=== PATIENT | female | born 1995 | race Hispanic/Latino ===

== ENCOUNTER 2020-08-27 15:30 | Emergency (ER) | payer SELFPAY ==
[2020-08-27] MEDS ORDERED: DEXAMETHASONE SOD PHOSPHATE 10MG/ML 1ML VIAL ONE (16:26)
[2020-08-27] MEDS ORDERED: FAMOTIDINE 20MG TAB 20 MG TAB ONE (16:27)
[2020-08-27] MEDS ORDERED: DIPHENHYDRAMINE HCL 25 MG CAPSULE ONE (16:27)
== END 2020-08-27 16:54 | disposition home or self-care (01) ==
LOC: EDH 15:30
DX: L50.0 Allergic urticaria (principal); L03.114 Cellulitis of left upper limb; Z98.890 Other specified postprocedural states
CPT/HCPCS: 96372; 99283; J1100; Q0163

== ENCOUNTER 2020-12-11 20:04 | Emergency (ER) | payer OTHER ==
[~2020-12-11] VITALS: Ht 154.9 cm; Wt 88.0 kg
[2020-12-11] MEDS ORDERED: ONDANSETRON 4MG TABLET PO ONE (21:30)
[2020-12-11] MEDS ORDERED: FAMOTIDINE 20MG TAB PO ONE (21:30)
[2020-12-11] MEDS ORDERED: METOCLOPRAMIDE 10 MG TABLET PO ONE (21:30)
[2020-12-11] MEDS ORDERED: KETOROLAC 60 MG VIAL (30MG/ML) IM ONE (21:30)
[2020-12-11 21:33] LABS: APPEARANCE,URINE Clear (CLEAR); BILIRUBIN,URINE Negative (NEGATIVE); COLOR,URINE Yellow (YELLOW); GLUCOSE, URINE (UA) Negative (NEGATIVE); KETONES,URINE >=80 mg/dL (NEGATIVE); LEUKOCYTE ESTERASE ,URINE Small (NEGATIVE); NITRATE,URINE Negative (NEGATIVE); OCCULT BLOOD,URINE Trace (NEGATIVE); PROTEIN,URINE Negative (NEGATIVE); UROBILINOGEN,URINE 0.2 mg/dL (0.2-1.0)
[2020-12-11 21:35] LABS: HCG,QUAL RESULT NEGATIVE (NEGATIVE)
[2020-12-11 21:42] LABS: RBC,URINE 0-1 /HPF (0-1); WBC,URINE 0-1 /HPF (0-1)
[2020-12-11 21:43] LABS: BASOPHILS % (AUTO) 0.3 % (0.0-5.0); EOSINOPHILS % (AUTO) 0.3 % (0.0-8.0); HEMATOCRIT 39.9 % (36-48); LYMPHOCYTES % (AUTO) 22.9 % (21.0-51.0); MEAN CORPUSCULAR HEMOGLOBIN 27.8 pg (27.0-33.0); MEAN CORPUSCULAR HGB CONC 33.1 g/dL (32.0-36.0); MONOCYTES % (AUTO) 5.6 % (3.0-13.0); NEUTROPHILS % (AUTO) 70.6 % (40.0-77.0); PLATELET COUNT (AUTO) 211 K/uL (130-400); RED BLOOD CELL COUNT(AUTO) 4.75 MIL/uL (4.00-5.50)
[2020-12-11 21:43] LABS: BACTERIA,URINE Few /HPF (None Seen); SQUAMOUS EPITHELIAL CELL,UR Few /HPF (0-2)
[2020-12-11 22:08] LABS: ALBUMIN 3.8 g/dL (3.5-5.0); BILIRUBIN,TOTAL 0.6 mg/dL (0.2-1.0); CREATININE 0.6 mg/dL (0.5-1.5); POTASSIUM 4.3 mmol/L (3.5-5.1); TOTAL PROTEIN, SERUM 7.6 g/dL (6.0-8.3)
[2020-12-11 22:30] VITALS: BP 135/82
[2020-12-11] MEDS ORDERED: DICY20TA2 PO (22:30)
[2020-12-11] MEDS ORDERED: ONDA4TAB10 PO (22:30)
[2020-12-11] MEDS ORDERED: METO-296 PO (22:30)
[2020-12-11] MEDS ORDERED: MELO7.5T12 PO (22:30)
[2020-12-11] MEDS ORDERED: FAMOTIDINE 20MG TAB ONE (22:34)
[2020-12-11] MEDS ORDERED: METOCLOPRAMIDE 10 MG TABLET ONE (22:34)
[2020-12-11] MEDS ORDERED: KETOROLAC 60 MG VIAL (30MG/ML) ONE (22:34)
[2020-12-11] MEDS ORDERED: ONDANSETRON ODT 4MG TAB ONE (22:35)
== END 2020-12-11 22:52 | disposition home or self-care (01) ==
LOC: EDH 20:04
DX: S39.011A Strain of muscle, fascia and tendon of abdomen, initial encounter (principal); R10.13 Epigastric pain; Z79.1 Long term (current) use of non-steroidal anti-inflammatories (NSAID); Z79.899 Other long term (current) drug therapy; X58.XXXA Exposure to other specified factors, initial encounter; Y93.89 Activity, other specified; Y92.89 Other specified places as the place of occurrence of the external cause; Y99.8 Other external cause status
CPT/HCPCS: 36415; 80053; 81001; 81025; 83690; 85025; 96372; 99284; J1885

== ENCOUNTER 2023-01-20 10:27 | Observation (INO) | payer MEDICAID, OTHER ==
[~2023-01-20] VITALS: Ht 154.9 cm; Wt 88.7 kg
[~2023-01-20 10:27] MED LIST: DICY20TA2 PO; MELO7.5T12 PO; METO-296 PO; ONDA4TAB10 PO
[2023-01-20 10:40] VITALS: BP 119/65; PULSE 106; RESP 16; O2SAT 97
[2023-01-20] MEDS ORDERED: LACTATED RINGERS 1000ML 1,000 ML IV PRN (11:00)
[2023-01-20 11:17] LABS: APPEARANCE,URINE CLOUDY (CLEAR); BILIRUBIN,URINE NEGATIVE (NEGATIVE); COLOR,URINE YELLOW (YELLOW); GLUCOSE, URINE (UA) NEGATIVE (NEGATIVE); KETONES,URINE 150 mg/dL (NEGATIVE); LEUKOCYTE ESTERASE ,URINE 250 Leu/uL (NEGATIVE); NITRATE,URINE NEGATIVE (NEGATIVE); OCCULT BLOOD,URINE NEGATIVE (NEGATIVE); PROTEIN,URINE 50 mg/dL (NEGATIVE); UROBILINOGEN,URINE 0.2 mg/dL (0.2-1.0)
[2023-01-20 11:19] LABS: ADD UA MICROSCOPIC YES
[2023-01-20 11:27] LABS: BACTERIA,URINE RARE /HPF (None Seen); MUCUS,URINE RARE LPF (None Seen); SQUAMOUS EPITHELIAL CELL,UR MANY /HPF (0-2)
[2023-01-20 11:54] LABS: AMPHET/METH SCREEN,URINE NEGATIVE (NEGATIVE); BARBITURATE SCREEN, URINE NEGATIVE (NEGATIVE); BENZODIAZEPINES SCREEN,URINE NEGATIVE (NEGATIVE); CANNABINOID SCREEN,URINE NEGATIVE (NEGATIVE); COCAINE SCREEN,URINE NEGATIVE (NEGATIVE); OPIATE SCREEN,URINE NEGATIVE (NEGATIVE); PHENCYCLIDINE SCREEN,URINE NEGATIVE (NEGATIVE)
[2023-01-20] MEDS ORDERED: PROMETHAZINE HCL 25 MG/ML 1ML AMPULE IM ONE (12:00)
[2023-01-20 12:07] LABS: SARS-CoV-2, RNA, NAAT NEGATIVE SARS CoV-2 (NEGATIVE)
[2023-01-20 12:11] LABS: INFLUENZA TYPE A Negative For Type A (NEGATIVE); INFLUENZA TYPE B Negative For Type B (NEGATIVE)
== END 2023-01-20 12:35 | disposition home or self-care (01) ==
LOC: EDH 10:27 → LDH 10:28
PROVIDERS: ADMIT Obstetrics & Gynecology; ATTEND Obstetrics & Gynecology
DX: O21.2 Late vomiting of pregnancy (principal); Z20.822 Contact with and (suspected) exposure to COVID-19; O26.892 Other specified pregnancy related conditions, second trimester; R10.9 Unspecified abdominal pain; R19.7 Diarrhea, unspecified; Z79.899 Other long term (current) drug therapy; Z3A.24 24 weeks gestation of pregnancy
CPT/HCPCS: 96372; 96360; 80305; 87088; 87804 ×2; 81001; 87635; G0378 ×2; G0379; J2550; J7120